=== PATIENT | female | born 1970 | race African-American/Black ===

== ENCOUNTER 2017-10-10 00:01 | Inpatient (IN) | payer BC ==
[2017-10-10] MEDS ORDERED: Diltiazem 125 MG/25 ML ONE (00:19)
[2017-10-10] MEDS ORDERED: Enoxaparin Sodium 100 MG/ML SYRINGE ONE (00:28)
[2017-10-10 00:44] LABS: Pregnancy Test - Urine (BHCG) Negative (Negative); Pregu Control Background? CLEAR/WHITE (CLR/WHITE); Pregu Control Bar Appear? YES (CONTROL BAR); Specific Gravity 1.004 (1.002-1.036)
[2017-10-10 00:45] LABS: INR-International Normal Ratio 0.9; PTT 30.4 SEC (22.9-36.1); Prothrombin Time 12.6 SEC (12.0-14.7)
[2017-10-10 00:50] LABS: Eosinophils 1 % (0-10); Hemoglobin 12.5 g/dL (12.0-16.0); Lymphocytes 26 % (21-51); MDiff Complete? YES; Mean Corpuscular HGB CONC 32.8 g/dL (32.0-36.0); Mean Corpuscular Hemoglobin 26.6 pg (27.0-31.0); Mean Corpuscular Volume 81.3 fL (78.0-98.0); Monocytes 6 % (0-10); Neutrophil 66 % (42-75); Platelet Count 430 thou/uL (130-400); RBC Distribution Width 12.2 % (11.5-14.5); Reactive Lymphocytes 1 % (0-10); Red Blood Cell (RBC) Count 4.68 mill/uL (4.20-5.40); White Blood Cell (WBC) Count 10.3 thou/uL (4.8-10.8)
[2017-10-10 00:54] LABS: ALT (SGPT) 12 U/L (8-55); AST (SGOT) 17 U/L (5-34); Albumin 3.9 g/dL (3.5-5.0); Alkaline Phosphatase 88 U/L (40-150); Anion Gap 14 mmol/L (10-20); BUN (Urea Nitrogen) 7 mg/dL (7.0-18.7); Bilirubin, Total 0.4 mg/dL (0.2-1.2); Calc. Creatinine Clearance 0 mL/min (70-130); Calcium 9.1 mg/dL (7.8-10.44); Carbon Dioxide 23 mmol/L (22-29); Chloride 103 mmol/L (98-107); Estimated GFR-MDRD Greater than 90; Globulin 3.4 g/dL (2.4-3.5); Glucose 127 mg/dL (70-105); Protein, Total 7.3 g/dL (6.0-8.3); Sodium 136 mmol/L (136-145)
[2017-10-10 00:56] LABS: CKMB 1.6 ng/mL (0-6.6); Troponin I Less than 0.010 ng/mL (< 0.028)
[2017-10-10] MEDS ORDERED: Acetaminophen 325 MG TAB PO PRN (03:43)
[2017-10-10] MEDS ORDERED: Ondansetron HCl/PF 4 MG/2 ML Vial IVP PRN (03:43)
[2017-10-10] MEDS ORDERED: Diltiazem 125 MG in Sodium Chloride 0.9% 100 ML IVPB SCH (04:00)
[2017-10-10 04:54] LABS: Hemoglobin A1c 5.8 % (4.0-6.0)
--- NOTE | 2017-10-10 05:48 | HP ---
PRIMARY CARE PHYSICIAN: Dr. Franco. CODE STATUS: FULL CODE. TIME OF EVALUATION: 03:50 a.m. CHIEF COMPLAINT: Irregular heartbeats. HISTORY OF PRESENT ILLNESS: This is a 47-year-old obese patient with history of hypertension, came to the hospital after having an episode of sudden onset, no relieving palpitations associated with lightheadedness, and mild tightness in the chest and radiating to the left upper shoulder, with no clear triggers, medication given in the ER. The patient denies any fever, chills, no cough, no shortness of breath. REVIEW OF SYSTEMS: Constitutional: No fever, no chills, generalized weakness. Respiratory: No cough, no sputum production, no shortness of breath. Cardiovascular: Mild tightness in the chest radiating to the left shoulder with palpitations, no shortness of breath. Gastrointestinal: No nausea, no vomiting, no diarrhea, no abdominal pain. CUT OUT MARKER: No dizziness, headache or feeling lightheaded. Genitourinary: No burning on urination. Extremities: No leg swelling. All other systems were reviewed and were negative except for the findings mentioned above. PAST MEDICAL HISTORY: Hypertension. SOCIAL HISTORY: Lives with . No smoking history, no alcohol abuse. PAST SURGICAL HISTORY: History of tooth surgery. FAMILY HISTORY: Mother and father with high blood pressure. ALLERGIES: None reported. HOME MEDICATIONS: Amlodipine. PHYSICAL EXAMINATION: VITAL SIGNS: Blood pressure 147/72, heart rate 80. By the time of my examination, initial presentation, heart rate was in the 116. GENERAL APPEARANCE: Alert, oriented, not in acute distress. HEENT: Eyes: Normal conjunctivae. Moist oral mucosa, anicteric. NECK: No JVD. RESPIRATORY: Bilateral air entry. No rales, no wheezing. Symmetric expansion. CARDIOVASCULAR: Normal rate, regular rhythm, no murmurs, no gallop, no edema. ABDOMEN: Soft, normal bowel sounds. The patient is obese. MUSCULOSKELETAL: Baseline range of motion and strength. No tenderness. SKIN: Warm and intact. No pallor, no rash, no redness. NEUROLOGIC: Baseline sensory. No evidence of any new focal weakness. Baseline speech. Cranial nerves seem to be intact. PSYCHIATRIC: Good mood, no anxiety, oriented, optimal judgment. LABORATORY DATA AND IMAGING: Labs were reviewed. The patient had white count 10.3, hemoglobin 12.5, MCV 81, platelet count 430. Coagulation: PT 12.6, INR 0.9, PTT 30.4. Sodium 136, potassium 4.0, chloride 103, carbon dioxide 23, anion gap 14, BUN 7, creatinine 0.74. GFR 90, glucose 127, calcium 9.1, total bilirubin 0.4, AST 17, ALT 12, alkaline phosphatase 88. Troponin was negative. EKG was reviewed. The patient has atrial fibrillation with RVR, ventricular rate 150 unable to estimate, QRS 78, QT corrected 480. ASSESSMENT AND PLAN: 1. Atrial fibrillation with rapid ventricular response. This is a new diagnosis, the patient received anticoagulation, [id number] score was 2, low risk for stroke. We will defer to Cardiology for any further recommendations. The patient will need Cardiology evaluation in the morning. We will order an echo. Monitor on tele. tsh to be checked. 2. Uncontrolled hypertension on presentation, the patient is on hydrochlorothiazide and amlodipine, might benefit from switching to other beta blockers. We will defer to Cardiology for reconciliation of medications. 3. The patient is obese, advised to lose weight. 4. Deep venous thrombosis prophylaxis. The patient already on anticoagulation. 5. hyperglycemia-no history of diabetes,, likley due to acute distress , also possible glucose intolerance due to obesity/hyperinsulisnism, will monioor and adjust as needed. MTDD
[2017-10-10] MEDS ORDERED: Aspirin 325 MG TAB PO SCH (08:00)
[2017-10-10] MEDS: Hydrochlorothiazide 25 MG TAB PO SCH (08:13)
[2017-10-10] MEDS ORDERED: Amlodipine 5 mg/Benazepril 20 mg CAP PO SCH (09:00)
[2017-10-10] MEDS ORDERED: Metoprolol Tartrate 50 MG TAB PO SCH (12:15)
[2017-10-10] MEDS: Enoxaparin Sodium 120 MG/0.8 ML SYRINGE SC SCH (12:28)
--- NOTE | 2017-10-10 12:48 | CON ---
DATE OF CONSULTATION: 10/10/2017 HISTORY: Jacqueline Cortez is a 47-year-old black female who denies any previous cardiac problems except for hypertension. She also states that at times she will beat her heart beat rapidly, but only does so for several seconds. She never monitors her blood pressure at home. Yesterday after taking 2-3 sips of a strawberry daiquiri, she started noticing her heart beating very rapidly associated with some chest pressure and mild shortness of breath. She ultimately came to the emergency room and was found to be in atrial fibrillation with fast ventricular response. She was given Cardizem 10 mg IV bolus followed by 5 mg per hour drip. Ultimately, this has been increased to 10 mg per hour and she continues to have fast ventricular response at times, although she is asymptomatic now. PAST MEDICAL HISTORY: Hypertension, it is unknown how well controlled this is. She denies any history of diabetes or hypercholesterolemia. MEDICATIONS: Lotrel unknown dose daily, hydrochlorothiazide unknown dose daily. ALLERGIES: None. OPERATION: Tubal ligation, oral surgery. REVIEW OF SYSTEMS: Twelve-point review of systems unremarkable. PHYSICAL EXAMINATION: VITAL SIGNS: 143/104, pulse of 104, but at times may be increased to 130 even on Cardizem 10. HEENT: PERRL. NECK: Supple. CHEST: Clear. CARDIAC: S1 and S2 normal without any S3 or S4. There is a 2/6 systolic murmur. Carotid upstrokes normal without bruits. ABDOMEN: Normal bowel sounds, without tenderness, organomegaly. EXTREMITIES: Revealed no clubbing, cyanosis or edema. NEUROLOGIC: Grossly intact. SKIN: Warm and dry. IMAGING DATA AND LABORATORY DATA: EKG revealed atrial fibrillation with rapid ventricular response of 150 per minute with occasional aberrantly conducted beat. CBC is unremarkable. Sodium 136, potassium 4.0, chloride 103, carbon dioxide 23, BUN 7, creatinine 0.74. Troponin I is less than 0.010. TSH is normal. CK and CK-MB are normal. IMPRESSION: 1. Atrial fibrillation with fast ventricular response. She does have intermittent palpitations lasting several seconds in the past. This occurred when she was drinking a strawberry daiquiri, but also probably her blood pressure is not well controlled. 2. Hypertension, not well controlled, we are monitoring here. She states she never checks it at home. 3. Distant smoker - in her 20s. 4. Obesity. PLAN: Echocardiogram will be performed for ventricular function. She will be placed on metoprolol 50 b.i.d. and this may need to be increased further. Further decision is being made once echocardiogram has been performed. RONALD
[2017-10-10 13:09] LABS: Medtox Reader # READER 4
[2017-10-10 13:10] LABS: Amphetamine Not Detected (NotDetected); Barbiturates Screen Not Detected (NotDetected); Benzodiazepine Screen Not Detected (NotDetected); Cocaine Metabolite Screen Not Detected (NotDetected); Medtox Control Line Valid? VALID (VALID); Methadone Not Detected (NotDetected); Methamphetamine Not Detected (NotDetected); Opiate Screen Not Detected (NotDetected); Oxycodone Screen Not Detected (NotDetected); Phencyclidine (PCP) Not Detected (NotDetected); THC/Cannabinoid Screen Not Detected (NotDetected); Tricyclic Screen Not Detected (NotDetected)
--- NOTE | 2017-10-10 13:50 | PDOC.EVN ---
Event Note - Event Note Event Note: Chart reviewed, patient seen. Will follow.
[2017-10-10] MEDS: Metoprolol Tartrate 50 MG TAB PO SCH (20:53)
[2017-10-10] MEDS ORDERED: Dronedarone HCl 400 MG TAB PO SCH (21:00)
[2017-10-11] MEDS: Enoxaparin Sodium 120 MG/0.8 ML SYRINGE SC SCH ×2 (01:29→12:49)
[2017-10-11 05:52] LABS: Anion Gap 14 mmol/L (10-20); BUN (Urea Nitrogen) 12 mg/dL (7.0-18.7); Calc. Creatinine Clearance 192 mL/min (70-130); Calcium 9.1 mg/dL (7.8-10.44); Carbon Dioxide 22 mmol/L (22-29); Chloride 105 mmol/L (98-107); Cholesterol 164 mg/dl (< 200 Desired); Estimated GFR-MDRD Greater than 90; Glucose 102 mg/dL (70-105); HDL Cholesterol 41 mg/dL (>60 Neg Risk); LDL Cholesterol, Calculated 110 mg/dL; Potassium 3.5 mmol/L (3.5-5.1); Sodium 137 mmol/L (136-145); Triglycerides 63 mg/dL (Less than 150)
[2017-10-11 06:44] LABS: Band 1 % (5-11); Eosinophils 1 % (0-10); Hemoglobin 12.2 g/dL (12.0-16.0); Lymphocytes 35 % (21-51); MDiff Complete? YES; Mean Corpuscular HGB CONC 32.3 g/dL (32.0-36.0); Mean Corpuscular Hemoglobin 27.6 pg (27.0-31.0); Mean Corpuscular Volume 85.5 fL (78.0-98.0); Mean Platelet Volume 7.6 fL (7.4-10.4); Monocytes 9 % (0-10); Neutrophil 53 % (42-75); Platelet Count 408 thou/uL (130-400); RBC Distribution Width 12.6 % (11.5-14.5); Red Blood Cell (RBC) Count 4.44 mill/uL (4.20-5.40); White Blood Cell (WBC) Count 10.3 thou/uL (4.8-10.8)
--- NOTE | 2017-10-11 09:54 | PDOC.PN ---
- Subjective Encounter Start Date: 10/11/17 Encounter Start Time: 11:30 Subjective: Patient converted to NSR overnight. Feeling much better. No CP. -: No N/V. No SOB. - Objective Resuscitation Status: Resuscitation Status FULL:Full Resuscitation MAR Reviewed: Yes Vital Signs & Weight: Vital Signs (12 hours) Temp Pulse Resp BP Pulse Ox 10/11/17 08:00 98 F 65 20 135/92 H 95 10/11/17 04:00 98.0 F 72 16 112/77 95 10/11/17 00:00 98.5 F 64 20 121/76 93 L I&O: 10/10/17 10/11/17 10/12/17 06:59 06:59 06:59 Intake Total 855 Balance 855 Result Diagrams: 10/11/17 04:54 10/11/17 04:54 Phys Exam - Physical Examination Constitutional: NAD HEENT: moist MMs Respiratory: no wheezing, no rales, no rhonchi Cardiovascular: RRR, no significant murmur Gastrointestinal: soft, positive bowel sounds Neurological: non-focal, moves all 4 limbs Psychiatric: normal affect, A&O x 3 Dx/Plan (1) Atrial fibrillation Code(s): I48.91 - UNSPECIFIED ATRIAL FIBRILLATION Status: Acute Qualifiers: Atrial fibrillation type: paroxysmal Qualified Code(s): I48.0 - Paroxysmal atrial fibrillation Comment: converted to NSR (2) Hypertension Code(s): I10 - ESSENTIAL (PRIMARY) HYPERTENSION Status: Chronic Qualifiers: Hypertension type: essential hypertension Qualified Code(s): I10 - Essential (primary) hypertension Comment: improved control (3) Morbid obesity Code(s): E66.01 - MORBID (SEVERE) OBESITY DUE TO EXCESS CALORIES Status: Chronic - Plan cont current plan of care, DVT proph w/lovenox Awaiting Dr. Morel's plan. * . - Discharge Day Encounter end time: 11:45
[2017-10-11] MEDS: Dronedarone HCl 400 MG TAB PO SCH ×2 (10:00→17:08)
[2017-10-11] MEDS: Metoprolol Tartrate 50 MG TAB PO SCH ×2 (10:00→21:19)
[2017-10-11] MEDS: Lisinopril 20 MG TAB PO SCH (10:00)
[2017-10-11] MEDS: Hydrochlorothiazide 25 MG TAB PO SCH (10:01)
[2017-10-11] MEDS ORDERED: Bisacodyl 5 MG TAB PO PRN (10:09)
[2017-10-11] MEDS ORDERED: Bisacodyl 10 MG SUPP PR PRN (10:09)
[2017-10-11] MEDS: Apixaban 5 MG TAB PO SCH (21:19)
[2017-10-11] MEDS: Docusate 100 MG CAP PO SCH (21:19)
--- NOTE | 2017-10-12 09:52 | PDOC.PN ---
- Subjective Encounter Start Date: 10/12/17 Encounter Start Time: 11:00 Subjective: Patient feeling better. No more palpitations. No SOB. - Objective Resuscitation Status: Resuscitation Status FULL:Full Resuscitation MAR Reviewed: Yes Vital Signs & Weight: Vital Signs (12 hours) Temp Pulse Resp BP Pulse Ox 10/12/17 07:56 98.7 F 65 18 134/86 96 10/12/17 04:00 98.2 F 68 18 133/78 99 10/12/17 00:00 97.6 F 67 18 118/81 97 I&O: 10/11/17 10/12/17 10/13/17 06:59 06:59 06:59 Intake Total 855 Balance 855 Result Diagrams: 10/11/17 04:54 10/11/17 04:54 Phys Exam - Physical Examination Constitutional: NAD HEENT: moist MMs Respiratory: no wheezing, no rales, no rhonchi Cardiovascular: RRR, no significant murmur Gastrointestinal: soft, positive bowel sounds Neurological: non-focal, moves all 4 limbs Psychiatric: normal affect, A&O x 3 Dx/Plan (1) Atrial fibrillation Code(s): I48.91 - UNSPECIFIED ATRIAL FIBRILLATION Status: Acute Qualifiers: Atrial fibrillation type: paroxysmal Qualified Code(s): I48.0 - Paroxysmal atrial fibrillation Comment: converted to NSR (2) Hypertension Code(s): I10 - ESSENTIAL (PRIMARY) HYPERTENSION Status: Chronic Qualifiers: Hypertension type: essential hypertension Qualified Code(s): I10 - Essential (primary) hypertension Comment: improved control (3) Morbid obesity Code(s): E66.01 - MORBID (SEVERE) OBESITY DUE TO EXCESS CALORIES Status: Chronic - Plan cont current plan of fdc today * . - Discharge Day Encounter end time: 11:15
[2017-10-12] MEDS: Lisinopril 20 MG TAB PO SCH (09:58)
[2017-10-12] MEDS: Docusate 100 MG CAP PO SCH (09:58)
[2017-10-12] MEDS: Apixaban 5 MG TAB PO SCH (09:58)
[2017-10-12] MEDS: Metoprolol Tartrate 50 MG TAB PO SCH (09:58)
[2017-10-12 15:51] VITALS: BP 124/83; TEMP 97.8
[2017-10-12] MEDS ORDERED: Atorvastatin Calcium 10 MG TAB PO SCH (21:00)
--- NOTE | 2017-10-13 02:18 | DIS ---
REASON FOR ADMISSION: Atrial fibrillation with rapid ventricular response. DISCHARGE DIAGNOSES: 1. Atrial fibrillation converted to normal sinus rhythm. 2. Hypertension. 3. Morbid obesity. PROCEDURES: Echocardiogram showing ejection fraction of 60%-65%, moderate to severe mitral regurgitation and mild to moderate tricuspid regurgitation. CONSULTATIONS: Cardiology, Gio Morel M.D. SUMMARY OF HOSPITAL COURSE: This is a 47-year-old -[place] female with a history of hyperten diane and obesity who presented with a sudden onset of palpitations as well as lightheadedness, mild c hest tightness. The patient was found to be in atrial fibrillation with rapid ventricular response. The patient was initially evaluated by Dr. Morel and initially tried on Multaq; however, she conv erted to normal sinus rhythm before the Multaq was given. In light of that, Dr. Morel did discont inue her calcium channel courtney and her hydrochlorothiazide and started her on metoprolol and lisino pril. The patient did well and during hospitalization, she was started on Eliquis for prophylaxis of strokes from her paroxysmal atrial fibrillation. She had an echocardiogram with the above results. On the day of discharge, Dr. Morel did clear her for discharge. DISCHARGE MANAGEMENT: Discharged home. Follow up with Dr. Morel in 14 days. ACTIVITY: As tolerated. DIET: Regular diet. DISCHARGE MEDICATIONS: 1. Eliquis 5 mg twice a day, 60 tablets dispensed. 2. Atorvastatin 10 mg daily, 30 tablets dispensed. 3. Lisinopril 20 mg daily, 30 tablets dispensed. 4. Metoprolol tartrate 50 mg twice a day, 60 tablets dispensed. 5. Patient is to continue her Protonix 40 mg daily.
== END 2017-10-12 16:34 | disposition home or self-care (01) | DRG 309 ==
LOC: SCSER 00:01 → 2SE 01:04
PROVIDERS: ADMIT Hospitalist; ATTEND Hospitalist
DX: I48.0 Paroxysmal atrial fibrillation (principal); Z68.42 Body mass index [BMI] 45.0-49.9, adult; E66.01 Morbid (severe) obesity due to excess calories; I08.1 Rheumatic disorders of both mitral and tricuspid valves; I10 Essential (primary) hypertension; R73.9 Hyperglycemia, unspecified; Z82.49 Family history of ischemic heart disease and other diseases of the circulatory system; Z79.899 Other long term (current) drug therapy; Z87.891 Personal history of nicotine dependence
CPT/HCPCS: 36415; 80048; 80053; 80061; 80306; 81025; 82553; 83036; 84443; 84484; 85025; 85610; 85730; 87086; 93005; 93306; 96365; 96372; 96376; A4216; J1650; J7050

== ENCOUNTER 2018-11-08 08:38 | Outpatient (CLI) | payer OTHER ==
--- NOTE | 2018-11-13 13:15 | MMO ---
Bilateral MAMMO Bilat Screen [facility]. CLINICAL HISTORY: Patient is 48 years old and is seen for screening. The patient has no family history of breast cancer. The patient has no personal history of cancer. VIEWS: The views performed were: bilateral craniocaudal with tomosynthesis and bilateral mediolateral oblique with tomosynthesis. FILMS COMPARED: The present examination has been compared to prior imaging studies performed at [facility] on 02/11/2015, 05/10/2016 and 07/22/2017. MAMMOGRAM FINDINGS: The breasts are almost entirely fat. There are no suspicious masses, suspicious calcifications, or new areas of architectural distortion. IMPRESSION: THERE IS NO MAMMOGRAPHIC EVIDENCE OF MALIGNANCY. A ROUTINE FOLLOW-UP MAMMOGRAM IN 1 YEAR IS RECOMMENDED. THE RESULTS OF THIS EXAM WERE SENT TO THE PATIENT. ACR BI-RADS Category 1 - Negative MAMMOGRAPHY NOTE: 1. A negative mammogram report should not delay a biopsy if a dominant of clinically suspicious mass is present. 2. Approximately 10% to 15% of breast cancers are not detected by mammography. 3. Adenosis and dense breasts may obscure an underlying neoplasm. Reported by: Miguel POSADA Electonically Signed: [id number]
== END 2018-11-08 08:39 | disposition home or self-care (01) ==
LOC: BICMAMMO 08:38
PROVIDERS: ATTEND Family Medicine
DX: Z12.31 Encounter for screening mammogram for malignant neoplasm of breast (principal)
CPT/HCPCS: 77063; 77067

== ENCOUNTER 2019-12-07 10:02 | Outpatient (CLI) | payer OTHER ==
--- NOTE | 2019-12-07 10:20 | RAD ---
2 VIEWS CHEST: Date: 12/07/2019 HISTORY: COVID-positive with atrial fibrillation. FINDINGS: Two views of the chest show normal sized cardiomediastinal silhouette. There is no evidence of consol idation, mass, or pleural effusion. The bones are unremarkable. IMPRESSION: No evidence of acute cardiopulmonary disease. POS: EAA
== END 2019-12-07 10:03 | disposition home or self-care (01) ==
LOC: SCSRAD 10:02
PROVIDERS: ATTEND Family Medicine
DX: T70.29XA Other effects of high altitude, initial encounter (principal)
CPT/HCPCS: 71046

== ENCOUNTER 2020-02-12 11:18 | Outpatient (CLI) | payer OTHER ==
--- NOTE | 2020-02-12 15:02 | MMO ---
Bilateral MAMMO Bilat Screen [facility]. CLINICAL HISTORY: Patient is 49 years old and is seen for screening. The patient has no family history of breast cancer. The patient has no personal history of cancer. VIEWS: The views performed were: bilateral craniocaudal with tomosynthesis and bilateral mediolateral oblique with tomosynthesis. FILMS COMPARED: The present examination has been compared to prior imaging studies performed at [facility] on 11/08/2018, and at [facility] on 02/11/2015, 05/10/2016 and 07/22/2017. This study has been interpreted with the assistance of computer-aided detection. MAMMOGRAM FINDINGS: The breasts are almost entirely fat. There are no suspicious masses, suspicious calcifications, or new areas of architectural distortion. IMPRESSION: THERE IS NO MAMMOGRAPHIC EVIDENCE OF MALIGNANCY. A ROUTINE FOLLOW-UP MAMMOGRAM IN 1 YEAR IS RECOMMENDED. THE RESULTS OF THIS EXAM WERE SENT TO THE PATIENT. ACR BI-RADS Category 1 - Negative MAMMOGRAPHY NOTE: 1. A negative mammogram report should not delay a biopsy if a dominant of clinically suspicious mass is present. 2. Approximately 10% to 15% of breast cancers are not detected by mammography. 3. Adenosis and dense breasts may obscure an underlying neoplasm. Reported by: LIBERTY CAMPO MD Electonically Signed: [id number]
== END 2020-02-12 11:19 | disposition home or self-care (01) ==
LOC: BICMAMMO 11:18
PROVIDERS: ATTEND Family Medicine
DX: Z12.31 Encounter for screening mammogram for malignant neoplasm of breast (principal)
CPT/HCPCS: 77063; 77067

== ENCOUNTER 2020-04-03 17:44 | Observation (INO) | payer OTHER ==
--- NOTE | 2020-04-03 18:05 | RAD ---
Portable frontal chest radiograph: 04/03/2020 COMPARISON: 12/07/2019 HISTORY: Chest pain FINDINGS: Lungs are clear. Heart and mediastinal contours appear within normal limits. IMPRESSION: No acute findings.
[2020-04-03 18:28] LABS: #Basophils 0.1 thou/uL (0.0-0.2); #Eosinphils 0.1 thou/uL (0.0-0.7); #Lymphocytes 3.7 thou/uL (1.20-3.40); #Monocytes 0.4 thou/uL (0.11-0.59); #Neutrophils 6.6 thou/uL (1.40-6.50); %Basophils 0.9 % (0.0-1.0); %Eosinophils 0.9 % (0.0-10.0); %Lymphocytes 34.1 % (21.0-51.0); %Neutrophils 60.1 % (42.0-75.0); Mean Corpuscular HGB CONC 32.7 g/dL (32.0-36.0); Mean Corpuscular Hemoglobin 27.7 pg (27.0-31.0); Mean Corpuscular Volume 84.6 fL (78.0-98.0); Mean Platelet Volume 7.6 fL (7.4-10.4); Platelet Count 468 thou/uL (130-400); RBC Distribution Width 13.5 % (11.5-14.5); Red Blood Cell (RBC) Count 4.32 mill/uL (4.20-5.40); White Blood Cell (WBC) Count 10.9 thou/uL (4.8-10.8)
[2020-04-03 18:56] LABS: ALT (SGPT) 10 U/L (8-55); AST (SGOT) 16 U/L (5-34); Albumin 4.3 g/dL (3.5-5.0); Alkaline Phosphatase 94 U/L (40-110); Anion Gap 16 mmol/L (10-20); BUN (Urea Nitrogen) 13 mg/dL (7.0-18.7); Bilirubin, Total 0.3 mg/dL (0.2-1.2); Calc. Creatinine Clearance 0 mL/min (70-130); Calcium 9.3 mg/dL (7.8-10.44); Carbon Dioxide 26 mmol/L (22-29); Chloride 100 mmol/L (98-107); Globulin 3.4 g/dL (2.4-3.5); Glucose 114 mg/dL (70-105); Potassium 3.5 mmol/L (3.5-5.1); Protein, Total 7.7 g/dL (6.0-8.3); Sodium 138 mmol/L (136-145)
[2020-04-03] MEDS ORDERED: Aspirin Chewable 81 MG TAB ONE ×2 (19:25)
[2020-04-03] MEDS ORDERED: Nitroglycerin 2% Ointment 1 INCH/1 GM Packet ONE (19:25)
[2020-04-03] MEDS ORDERED: Dextrose 50% Abboject 50 ML SYRINGE SLOW IVP PRN (22:58)
[2020-04-03] MEDS ORDERED: HumaLOG 300 UNITS/3 ML VIAL SC PRN (22:58)
[2020-04-03] MEDS ORDERED: Dextrose 5% in Water 1,000 ML IV PRN (22:58)
[2020-04-03 23:40] VITALS: BMI 48.8
[2020-04-04 02:44] LABS: Troponin I 0.012 ng/mL (< 0.028)
--- NOTE | 2020-04-04 04:49 | HP ---
REASONS FOR ADMISSION: Chest pain. HISTORY OF PRESENT ILLNESS: This is a 49-year-old female patient, presenting with chest pain history going back to 24 hours before her presentation, the patient has been experiencing pressure in the retrosternal area, duration minutes, occurring at rest, not occurring with exertion. She also describes initially a burning-like sensation. She thought that it was her heartburn acting up. Also, she did burp, but did not feel better after burping and since she has been experiencing this chest discomfort off and on for the past 24 hours, she was concerned as that is why she presented to the ER. Currently, she is chest pain free. PAST MEDICAL HISTORY: 1. Atrial fibrillation. 2. Diabetes, type 2. 3. High blood pressure. 4. High cholesterol. 5. Obesity. 6. GERD. 7. Iron-deficiency anemia, does take iron. 8. Hypokalemia due to the diuretics that she is on. SOCIAL HISTORY: She does not smoke. Does not drink alcohol. FAMILY HISTORY: Negative for premature coronary artery disease. ALLERGIES: NO NOTE OF ANY DRUG ALLERGY. REVIEW OF SYSTEMS: All systems reviewed except the above mentioned, found to be negative. PHYSICAL EXAMINATION: GENERAL: Awake, alert, oriented, does not appear in distress. VITAL SIGNS: Her blood pressure is 123/91, heart rate of 66, temperature is 97.7, saturating 99% on room air. HEENT: Head is nontraumatic, normocephalic. Pupils equally reactive. Extraocular movements are intact. Nonicteric sclerae. Well-injected conjunctivae. Oral mucosa normal. Nasal mucosa normal. NECK: Supple. No adenopathy. No murmur. Thyroid is not palpable. Trachea is midline. No supraclavicular adenopathy. HEART: S1, S2 regular. No murmur. No gallops. No friction rubs. No displacement of PMI. LUNGS: Clear to auscultation bilaterally. No wheezes. No rhonchi. No crackles. Bowel sounds are positive. Nontender abdomen. No hepatosplenomegaly. EXTREMITIES: No lower extremity edema. No cyanosis. NEUROLOGIC: Cranial nerves 2 through 12 within normal limits. Normal motor function. Normal sensory function and reflexes. LABORATORY DATA: Blood work shows a WBC of 10.9, hemoglobin 12, platelets of 468. Sodium 138, potassium 3.5, bicarb 26, BUN 13, creatinine 0.81. Her EKG shows nonspecific ST-segment changes. ASSESSMENT AND PLAN: This is a 49-year-old female patient, presenting with atypical chest pain. She does have risk factors such as diabetes and obesity and high blood pressure and high cholesterol. She will be admitted to Telemetry. We will cycle her cardiac enzymes and we will schedule for a nuclear stress test in the morning. We will start her on baby aspirin. We will continue her Eliquis for her atrial fibrillation. For her diabetes, she will be on insulin sliding scale. For deep vein thrombosis prophylaxis, she will be on SCDs and she is already on Eliquis. Job ID: [id number]
[2020-04-04 05:45] LABS: SARS-CoV-2 MS2 Positive; SARS-CoV-2 N Gene Negative; SARS-CoV-2 S Gene Negative; SARS-CoV-2 by NAA Not Detected (NotDetected); SARS-CoV-2 orf1ab Negative
[2020-04-04 07:51] VITALS: TEMP 98.2
[2020-04-04] MEDS ORDERED: Aspirin 81 mg Enteric Coated Tablet PO SCH (09:00)
[2020-04-04] MEDS ORDERED: Chlorthalidone 25 MG TAB PO SCH (09:00)
[2020-04-04] MEDS ORDERED: Amlodipine 5 mg/Benazepril 20 mg CAP PO SCH (09:00)
[2020-04-04] MEDS ORDERED: Metoprolol Tartrate 50 MG TAB PO SCH (09:00)
[2020-04-04] MEDS ORDERED: Apixaban 5 MG TAB PO SCH (09:00)
[2020-04-04 11:48] VITALS: BP 115/69
--- NOTE | 2020-04-04 15:16 | PDOC.DS.DS ---
Provider - Provider Date of Admission: 04/03/20 19:55 Admitting Provider: Hardeep Graves MD Primary Care Physician: Marek Franco MD Course - Hospital Course Hospital Course: 49-year-old female presented with atypical chest pain she ruled out for acute coronary syndrome. No lipid panel ordered during the time of admission. Her stress test is negative. She is on Eliquis for atrial fibrillation. She is on Lipitor 10 mg at bedtime. She is diabetic, has atrial fibrillation and obesity put her at risk for coronary artery disease. Needs TSH as well as fasting lipid panel along with A1c as an outpatient. Please follow-up with PCP in 1 week. Charge time over 30 minutes Resuscitation Status: 04/03/20 22:54 Resuscitation Status Routine Resuscitation Status: FULL: Full Resuscitation - Labs Lab Results: 04/03/20 18:17 04/03/20 18:17 Abnormal Lab Results - Last 48 hrs 04/03/20 18:17: WBC 10.9 H, Plt Count 468 H, Neutrophils # 6.6 H, Lymphocytes # 3.7 H - Physical Exam Vitals: Vital Signs (12 hours) Temp Pulse Resp BP Pulse Ox 04/04/20 11:42 98.2 F 74 18 115/69 100 04/04/20 07:45 98.2 F 80 16 120/71 98 04/04/20 04:00 98.3 F 80 18 124/67 97 Weight Weight 284 lb 7 oz Physical Exam: The patient was seen and examined on the day of discharge. In the chair. Denies any chest pain at this time. Plan - Discharge Medications Home Medications: Medication Instructions Recorded Confirmed Type Pantoprazole [Protonix] 40 mg PO DAILY 10/10/17 04/03/20 History Apixaban [Eliquis] 5 mg PO BID #60 tab 10/12/17 04/03/20 Rx Atorvastatin Calcium [Lipitor] 10 mg PO HS #30 tab 10/12/17 04/03/20 Rx Metoprolol Tartrate [Lopressor] 50 mg PO BID #60 tab 10/12/17 04/03/20 Rx Amlodipine/Benazepril [Lotrel] 1 cap PO DAILY 04/03/20 04/03/20 History Chlorthalidone [Hygroton] 25 mg PO DAILY 04/03/20 04/03/20 History Saxagliptin HCl/metFORMIN HCl 1 tablet PO QPM-WM 04/03/20 04/03/20 History [Kombiglyze XR] Allergies: No Known Allergies Allergy (Verified 04/03/20 23:44) - Discharge Instructions Activity:: Activity as Tolerated Nourishment:: Heart Healthy Diet - Follow up Plan Referrals: Marek Franco MD [Primary Care Provider] - 7 Days (PLEASE CALL OFFICE TO SCHEDULE AN APPOINTMENT.) Disposition: HOME Quality - Care Measures CORE MEASURES:: N/A
--- NOTE | 2020-04-04 15:21 | NM ---
EXAM: Cardiac SPECT HISTORY: Chest pain, atrial fibrillation, hypertension, diabetes, dyslipidemia PROTOCOL: Stress only, single isotope TYPE OF STRESS: Pharmacologic stress with adenosine was monitored and interpreted by the physician's microbiology lab assistant. RADIOPHARMACEUTICAL: 30 mCi technetium 99m-sestamibi injected intravenously FINDINGS: Homogeneous tracer distribution is seen in the myocardial segments on the post stress images. Gated SPECT LVEF: 67% Wall motion exam: Normal IMPRESSION: Normal post stress myocardial perfusion scan. Cardiology consult is recommended since the patient's ECG stress report was positive.
[2020-04-04] MEDS ORDERED: Atorvastatin Calcium 10 MG TAB PO SCH (21:00)
--- NOTE | 2020-04-05 14:50 | EKG ---
Test Reason : Blood Pressure : / mmHG Vent. Rate : 074 BPM Atrial Rate : 074 BPM P-R Int : 164 ms QRS Dur : 086 ms QT Int : 398 ms P-R-T Axes : 054 023 010 degrees QTc Int : 441 ms Normal sinus rhythm Normal ECG Confirmed by VAMSHI SPENCER M.D. ([id number]), newspaper copy editor ESDRAS ISIDRO ([id number]) on 04/05/2020 2:50:21 PM Referred By: Confirmed By:VAMSHI SPENCER M.D.
== END 2020-04-04 15:51 | disposition home or self-care (01) ==
LOC: ERS 17:44 → 2NO 19:55
PROVIDERS: ADMIT Internal Medicine; ATTEND Internal Medicine
DX: R07.89 Other chest pain (principal); I48.91 Unspecified atrial fibrillation; E11.9 Type 2 diabetes mellitus without complications; I10 Essential (primary) hypertension; E78.00 Pure hypercholesterolemia, unspecified; D50.9 Iron deficiency anemia, unspecified; E87.6 Hypokalemia; E66.9 Obesity, unspecified; Z68.42 Body mass index [BMI] 45.0-49.9, adult; Z79.899 Other long term (current) drug therapy; Z20.828 Contact with and (suspected) exposure to other viral communicable diseases
CPT/HCPCS: 36415; 36416; 71045; 78452; 80053; 83880; 84484; 85025; 87635; 93005; 93017; 94760; A9500; G0378; J0153; U0003

== ENCOUNTER 2020-10-04 20:57 | Emergency (ER) | payer OTHER ==
[2020-10-04] MEDS ORDERED: HYDROcodone/Acetaminophen 10/325 mg Tablet ONE (23:36)
== END 2020-10-05 01:06 | disposition home or self-care (01) ==
LOC: ERS 20:57
DX: S80.02XA Contusion of left knee, initial encounter (principal); E11.9 Type 2 diabetes mellitus without complications; I48.91 Unspecified atrial fibrillation; I10 Essential (primary) hypertension; Z79.01 Long term (current) use of anticoagulants; Z79.899 Other long term (current) drug therapy; W01.0XXA Fall on same level from slipping, tripping and stumbling without subsequent striking against object, initial encounter

== ENCOUNTER 2021-05-12 09:25 | Outpatient (CLI) | payer OTHER | END 2021-05-12 09:26 | disposition home or self-care (01) | LOC: BICMAMMO 09:25 | PROVIDERS: ATTEND Family Medicine | DX: Z12.31 Encounter for screening mammogram for malignant neoplasm of breast (principal) | CPT/HCPCS: 77063; 77067 ==

== ENCOUNTER 2022-05-13 08:06 | Outpatient (CLI) | payer OTHER | END 2022-05-13 08:07 | disposition home or self-care (01) | LOC: BICMAMMO 08:06 | PROVIDERS: ATTEND Family Medicine | DX: Z12.31 Encounter for screening mammogram for malignant neoplasm of breast (principal) | CPT/HCPCS: 77063; 77067 ==

== ENCOUNTER 2023-05-11 09:49 | Outpatient (CLI) | payer OTHER | END 2023-05-11 09:50 | disposition home or self-care (01) | LOC: BICMAMMO 09:49 | PROVIDERS: ATTEND Family Medicine | DX: Z12.31 Encounter for screening mammogram for malignant neoplasm of breast (principal) | CPT/HCPCS: 77063; 77067 ==